=== PATIENT | male | born 1965 | race Caucasian/White ===

== ENCOUNTER 2022-05-23 17:30 | Emergency (ER) | payer OTHER, MEDICAID ==
[~2022-05-23] VITALS: Ht 177.8 cm; Wt 103.4 kg
[2022-05-23] MEDS ORDERED: GRALISE300 MG PO (17:46)
[2022-05-23] MEDS ORDERED: AMOX TR-K CLV1 EAC1 PO (19:43)
[2022-05-23] MEDS ORDERED: VENTOLIN HFA18 GM INH (19:43)
--- OUTSIDE RECORDS SUMMARY | 2022-05-23 19:54 | XMS ---
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 PHONE: Unknown Osman has no Care Guidelines for this patient. Mxa VISIT COUNT (12 MO.) 2 Sondra HMaria Isabel [address] [place] [address] TOTAL 3 NOTE: Visits indicate total known visits. ED/UCC VISIT TRACKING (12 MO.) 05/23/2022 17:31 [facility] TYPE: Emergency COMPLAINT: - COUGHING BLOOD 05/18/2022 00:52 [facility] TYPE: Emergency COMPLAINT: - N30.00 DIAGNOSES: - Acute cystitis without hematuria - Chronic kidney disease, stage 4 (severe) 03/14/2022 13:16 [facility] TYPE: Emergency DIAGNOSES: - Pneumonia, unspecified organism - Chronic kidney disease, unspecified - Acute kidney failure, unspecified INPATIENT VISIT TRACKING (12 MO.) 03/14/2022 13:16 [facility] TYPE: Inpatient DIAGNOSES: - Acute kidney failure, unspecified - Pneumonia, unspecified organism - Chronic kidney disease, unspecified [email or web address]
--- NOTE | 2022-05-24 21:31 | EKG ---
[facility] [address] [facility] [place] [address] Signed Sinus rhythm with 1st degree AV block Otherwise normal ECG No previous ECGs available Confirmed by Viji Prakash MD () on 05/24/2022 9:31:17 PM Electronically Signed By: VIJI PRAKASH MD 05/24/222130 PATIENT NAME: BRENT NGUYEN Electrocardiogram DATE OF : 65 PHYSICIAN: VIJI PRAKASH MD REPORT #: [id number] REPORT IS CONFIDENTIAL AND NOT TO BE RELEASED WITHOUT AUTHORIZATION
== END 2022-05-23 20:50 | disposition home or self-care (01) ==
LOC: ED 17:30
DX: J18.9 Pneumonia, unspecified organism (principal); K21.9 Gastro-esophageal reflux disease without esophagitis; R25.2 Cramp and spasm; E11.22 Type 2 diabetes mellitus with diabetic chronic kidney disease; N18.6 End stage renal disease; Z79.899 Other long term (current) drug therapy
CPT/HCPCS: 36415; 71045; 80053; 83690; 83735; 84484; 85025; 93005; 93010; 96374; 99285-25; J2270